=== PATIENT | male | born 1960 | race Caucasian/White ===

== ENCOUNTER 2020-09-05 18:18 | Inpatient (IN) | payer MEDICAID ==
[~2020-09-05] VITALS: Ht 165.1 cm; Wt 90.7 kg
[2020-09-05 19:57] LABS: CHLORIDE 100 mEq/L (98-107)
[2020-09-05 19:58] LABS: HEMATOCRIT. 39.1 % (42.0-52.0); HEMOGLOBIN. 14.3 g/dL (14.0-18.0); MEAN CORPUSCULAR HEMOGLOBIN 34.3 pg (28.0-32.0); MEAN PLATELET VOLUME 8.4 fl (7.4-10.4); PLATELET 231 x1000/uL (130-400); RED BLOOD CELL COUNT 4.16 mill/uL (4.7-6.1); RED CELL DISTRIBUTION WIDTH 13.5 % (11.6-14.6)
[2020-09-05 20:00] LABS: CLARITY URINE CLEAR (CLEAR); COLOR URINE YELLOW (YELLOW); KETONES URINE TRACE (NEGATIVE); LEUKOCYTE ESTERASE URINE NEGATIVE (NEGATIVE); NITRITE URINE NEGATIVE (NEGATIVE); OCCULT BLOOD URINE 2+ (NEGATIVE); PH URINE 5.5 (4.5-8.0); PROTEIN URINE NEGATIVE (NEGATIVE); SPECIFIC GRAVITY URINE 1.013 (1.005-1.030); UROBILINOGEN URINE 0.2 E.U./dL (0.2-1.0)
[2020-09-05 20:02] LABS: ETHANOL BLOOD 95 mg/dL
[2020-09-05 21:00] LABS: *AMPHETAMINES SCREEN URINE NEGATIVE (NEGATIVE); *BARBITURATES SCREEN URINE NEGATIVE (NEGATIVE); *BENZODIAZEPINES SCREEN URINE NEGATIVE (NEGATIVE); *COCAINE SCREEN URINE NEGATIVE (NEGATIVE); CANNABINOID URINE SCREEN NEGATIVE (NEGATIVE); OPIATES URINE SCREEN NEGATIVE (NEGATIVE); PHENCYCLIDINE URINE SCREEN NEGATIVE (NEGATIVE)
[2020-09-05 21:01] LABS: METHADONE URINE SCREEN NEGATIVE (NEGATIVE)
[2020-09-05 21:38] LABS: PLATELET ESTIMATE NORMAL
[2020-09-05] MEDS ORDERED: SODIUM CHLORIDE 0.9% 1,000 ML IV ONE (23:45)
[2020-09-05] MEDS ORDERED: ONDANSETRON HCL 4MG/2ML INJ IV ONE (23:45)
[2020-09-05] MEDS ORDERED: CYANOCOBALAMIN 1000MCG/ML VIAL IM ONE (23:45)
[2020-09-05] MEDS ORDERED: LORAZEPAM 0.5MG TABLET PO ONE (23:45)
[2020-09-06] MEDS ORDERED: POTASSIUM CHLORIDE 20MEQ TABLET SR PO ONE (00:45)
[2020-09-06] MEDS ORDERED: HYDROCODONE/ACETAMINOPHEN 5/325MG TABLET PO ONE (04:45)
[2020-09-06 10:00] VITALS: BP 148/72
[2020-09-06 10:47] VITALS: BP 148/72
[2020-09-06 12:00] VITALS: BP 154/91
[2020-09-06] MEDS ORDERED: DEXTROSE 50% WATER 50ML SYRINGE IV PRN (13:15)
[2020-09-06] MEDS: SODIUM CHLORIDE 0.45% 1,000 ML IV SCH (14:23)
[2020-09-06] MEDS: CHLORDIAZEPOXIDE 5 MG CAPSULE PO SCH ×2 (14:25→21:38)
[2020-09-06] MEDS: AMLODIPINE 5MG TABLET PO SCH (14:25)
[2020-09-06] MEDS: ISOSORBIDE MONONITRATE 30MG TABLET SR 24HR PO SCH (14:26)
[2020-09-06] MEDS: ASPIRIN 81MG TABLET PO SCH (14:27)
[2020-09-06] MEDS ORDERED: AMLO5TAB4 PO (15:14)
[2020-09-06] MEDS ORDERED: METO25TA6 MT (15:14)
[2020-09-06] MEDS ORDERED: ISOS10TA53 MT (15:14)
[2020-09-06] MEDS ORDERED: ASPI-1497 PO (15:18)
[2020-09-06 16:00] VITALS: BP 132/67
[2020-09-06] MEDS: INSULIN LISPRO 100 UNITS/ML SUBCUT SCH ×2 (17:40→21:00)
[2020-09-06] MEDS: BLOOD SUGAR DIAGNOSTIC STRIP TEST SCH ×2 (17:41→21:38)
[2020-09-06 20:00] VITALS: BP 138/86
[2020-09-06] MEDS ORDERED: METOPROLOL TARTRATE 25MG TABLET PO SCH (21:00)
[2020-09-06] MEDS: METOPROLOL TARTRATE 25MG TABLET PO SCH (21:37)
[2020-09-07] VITALS: BP 129/98
[2020-09-07] MEDS: SODIUM CHLORIDE 0.45% 1,000 ML IV SCH ×2 (01:03→13:45)
[2020-09-07 04:00] VITALS: BP 138/93
[2020-09-07] MEDS: CHLORDIAZEPOXIDE 5 MG CAPSULE PO SCH ×2 (05:48→14:00)
[2020-09-07] MEDS: BLOOD SUGAR DIAGNOSTIC STRIP TEST SCH ×2 (05:48→12:26)
[2020-09-07] MEDS: INSULIN LISPRO 100 UNITS/ML SUBCUT SCH ×2 (05:48→12:26)
[2020-09-07] MEDS ORDERED: METO25TA6 MT (07:02)
[2020-09-07] MEDS ORDERED: AMLO5TAB4 PO (07:02)
[2020-09-07 07:22] LABS: BASOPHILS % 0.5 % (0.0-2.0); HEMATOCRIT. 40.2 % (42.0-52.0); HEMOGLOBIN. 14.4 g/dL (14.0-18.0); MEAN CORPUSCULAR HEMOGLOBIN 34.1 pg (28.0-32.0); MEAN CORPUSCULAR VOLUME 94.9 fL (80.0-94.0); MEAN PLATELET VOLUME 8.2 fl (7.4-10.4); MONOCYTES % 8.8 % (2.0-8.0); NEUTROPHILS % 70.7 % (40.0-76.0); PLATELET 208 x1000/uL (130-400); RED BLOOD CELL COUNT 4.23 mill/uL (4.7-6.1); RED CELL DISTRIBUTION WIDTH 13.8 % (11.6-14.6)
[2020-09-07 07:42] LABS: CHLORIDE 106 mEq/L (98-107)
[2020-09-07 08:00] VITALS: BP 127/88
[2020-09-07] MEDS: ASPIRIN 81MG TABLET PO SCH (09:41)
[2020-09-07] MEDS: ISOSORBIDE MONONITRATE 30MG TABLET SR 24HR PO SCH (09:41)
[2020-09-07] MEDS: AMLODIPINE 5MG TABLET PO SCH (09:41)
[2020-09-07 09:42] LABS: T4 FREE 1.1 ng/dL (0.76-1.46)
[2020-09-07] MEDS: METOPROLOL TARTRATE 25MG TABLET PO SCH (09:42)
[2020-09-07 12:00] VITALS: BP 127/81
[2020-09-07 14:03] VITALS: BP 127/81
[2020-09-07 16:17] LABS: CREATINE KINASE 84 IU/L (39-308)
[2020-09-08 05:09] LABS: HAV IGM ANTIBODY Negative (Negative); HBSAG SCREEN Negative (Negative); HEPATITIS B CORE IGM AB Negative (Negative); HEPATITIS C AB <0.1 s/co ratio (0.0-0.9)
== END 2020-09-07 16:55 | disposition home or self-care (01) | DRG 243 ==
LOC: ER 20:35 → 8WST 09-06 01:18 → EDBEDREQTM 09-06 01:24 → EDBEDREQ 09-06 01:24 → ENRESERV 09-06 09:03
PROVIDERS: ADMIT Family Medicine; ATTEND Family Medicine
DX: K21.9 Gastro-esophageal reflux disease without esophagitis (principal); E87.2 Acidosis; E11.9 Type 2 diabetes mellitus without complications; F32.9 Major depressive disorder, single episode, unspecified; I10 Essential (primary) hypertension; F10.129 Alcohol abuse with intoxication, unspecified; Y90.9 Presence of alcohol in blood, level not specified; F10.139 Alcohol abuse with withdrawal, unspecified; Z79.82 Long term (current) use of aspirin; Z79.899 Other long term (current) drug therapy
CPT/HCPCS: 36415; 71045; 80053; 80061; 80074; 80076; 80305; 80320; 81003; 82248; 82550; 82553; 82962; 83036; 83605; 83880; 84439; 84443; 84484; 85025; 85379; 86705; 86709; 86803; 87340; 93005; 93306; 99285; J2405; J3420; J7030; G0480

== ENCOUNTER 2023-08-03 00:38 | Emergency (ER) | payer MEDICAID ==
[~2023-08-03] VITALS: Ht 172.7 cm; Wt 100.0 kg
[~2023-08-03 00:38] MED LIST: AMLO5TAB4 PO; ASPI-1497 PO; METO25TA6 MT
[2023-08-03 00:48] VITALS: BP 108/73; PULSE 93; RESP 16; TEMP 98.3; O2SAT 99
[2023-08-03 04:04] LABS: CARBON DIOXIDE 27 mEq/L (21-32); CHLORIDE 98 mEq/L (98-107); POTASSIUM 3.9 mEq/L (3.5-5.1); SODIUM 133 mEq/L (136-145)
[2023-08-03 04:09] LABS: GLUCOSE 100 mg/dL (70-105)
[2023-08-03 04:10] LABS: TROPONIN I HIGH SENSITIVITY 5 ng/L (3.0-53); UREA NITROGEN BLOOD 8 mg/dL (9-23)
[2023-08-03 04:11] LABS: ALANINE AMINOTRANSFERASE 23 IU/L (10-49); ALBUMIN 5.2 g/dL (3.2-4.8); ASPARTATE AMINOTRANSFERASE 26 IU/L (<34)
[2023-08-03 04:12] LABS: BILIRUBIN TOTAL 0.7 mg/dL (0.1-1.0); PROTEIN TOTAL 8.2 g/dL (6.0-8.3)
[2023-08-03 05:07] LABS: BASOPHILS % 0.2 % (0.0-2.0); DIFFERENTIAL COMMENT 0; EOSINOPHILS % 0.4 % (0.0-5.0); HEMATOCRIT. 44.8 % (42.0-52.0); HEMOGLOBIN. 15.9 g/dL (14.0-18.0); LYMPHOCYTES % 13.7 % (20.0-50.0); MEAN CORPUSCULAR HEMOGLOBIN 32.4 pg (28.0-32.0); MEAN CORPUSCULAR HGB CONC 35.5 g/dL (31.0-37.0); MEAN CORPUSCULAR VOLUME 91.4 fL (80.0-94.0); MEAN PLATELET VOLUME 8.7 fl (7.4-10.4); MONOCYTES % 7.1 % (2.0-8.0); NEUTROPHILS % 78.6 % (40.0-76.0); RED CELL DISTRIBUTION WIDTH 13.4 % (11.6-14.6)
[2023-08-03 05:09] LABS: RED BLOOD CELL COUNT 4.82 mill/uL (4.7-6.1); WHITE BLOOD COUNT 10.8 x1000/uL (4.5-11.0)
[2023-08-03 05:10] LABS: PLATELET 298 x1000/uL (130-400)
[2023-08-03] MEDS ORDERED: ACET-2708 MT (05:58)
[2023-08-03] MEDS ORDERED: TRAM50TA3 MT (05:58)
== END 2023-08-03 06:06 | disposition home or self-care (01) ==
LOC: ER 00:38
DX: R07.89 Other chest pain (principal); S80.01XA Contusion of right knee, initial encounter; I10 Essential (primary) hypertension; E11.9 Type 2 diabetes mellitus without complications; Z98.890 Other specified postprocedural states; X58.XXXA Exposure to other specified factors, initial encounter; Y93.89 Activity, other specified; Y92.89 Other specified places as the place of occurrence of the external cause; Y99.8 Other external cause status
CPT/HCPCS: 36415; 71045; 72128; 80053; 84484; 85025; 93005; 99285

== ENCOUNTER 2023-08-25 13:45 | Emergency (ER) | payer MEDICAID ==
[~2023-08-25] VITALS: Ht 170.2 cm; Wt 91.0 kg
[~2023-08-25 13:45] MED LIST changes: +ACET-2708 MT; +TRAM50TA3 MT
[2023-08-25 13:50] VITALS: BP 134/80; PULSE 101; RESP 16; TEMP 97.7; O2SAT 100
[2023-08-25] MEDS ORDERED: ASPIRIN 81MG TABLET PO ONE (14:30)
[2023-08-25 14:55] LABS: BASOPHILS % 0.6 % (0.0-2.0); EOSINOPHILS % 0.8 % (0.0-5.0); HEMATOCRIT. 42.9 % (42.0-52.0); HEMOGLOBIN. 15.1 g/dL (14.0-18.0); LYMPHOCYTES % 12.9 % (20.0-50.0); MEAN CORPUSCULAR HEMOGLOBIN 32.3 pg (28.0-32.0); MEAN CORPUSCULAR HGB CONC 35.2 g/dL (31.0-37.0); MEAN CORPUSCULAR VOLUME 91.7 fL (80.0-94.0); MEAN PLATELET VOLUME 7.9 fl (7.4-10.4); MONOCYTES % 6.1 % (2.0-8.0); NEUTROPHILS % 79.6 % (40.0-76.0); PLATELET 271 x1000/uL (130-400); RED BLOOD CELL COUNT 4.67 mill/uL (4.7-6.1); RED CELL DISTRIBUTION WIDTH 13.7 % (11.6-14.6); WHITE BLOOD COUNT 9.2 x1000/uL (4.5-11.0)
[2023-08-25 15:01] LABS: CHLORIDE 99 mEq/L (98-107); POTASSIUM 3.1 mEq/L (3.5-5.1); SODIUM 131 mEq/L (136-145)
[2023-08-25 15:02] LABS: CARBON DIOXIDE 23 mEq/L (21-32)
[2023-08-25 15:03] LABS: CALCIUM 9.8 mg/dL (8.7-10.4)
[2023-08-25 15:05] LABS: PARTIAL THROMBOPLASTIN TIME 28.2 sec (23.4-31.0); PROTHROMBIN TIME 11.2 sec (9.6-11.0)
[2023-08-25 15:07] LABS: GLUCOSE 119 mg/dL (70-105)
[2023-08-25 15:08] LABS: UREA NITROGEN BLOOD 9 mg/dL (9-23)
[2023-08-25 15:09] LABS: ALANINE AMINOTRANSFERASE 23 IU/L (10-49); ALBUMIN 4.4 g/dL (3.2-4.8); ASPARTATE AMINOTRANSFERASE 25 IU/L (<34)
[2023-08-25 15:10] LABS: BILIRUBIN DIRECT 0.3 mg/dL (<=3.0); BILIRUBIN TOTAL 0.8 mg/dL (0.1-1.0); PROTEIN TOTAL 7.5 g/dL (6.0-8.3)
[2023-08-25 15:16] LABS: TROPONIN I HIGH SENSITIVITY < 4 ng/L (3.0-53)
[2023-08-25 15:18] LABS: ETHANOL BLOOD < 10 mg/dL (<10)
== END 2023-08-25 15:54 | disposition left against medical advice (07) ==
LOC: ER 13:56 → CANBEDREQ 22:45
DX: R07.89 Other chest pain (principal); F15.90 Other stimulant use, unspecified, uncomplicated; I10 Essential (primary) hypertension; E11.9 Type 2 diabetes mellitus without complications; Z98.890 Other specified postprocedural states
CPT/HCPCS: 36415; 80048; 80076; 80320; 83880; 84484; 85025; 93005; 99283; G0480

== ENCOUNTER 2023-10-16 21:02 | Emergency (ER) | payer MEDICAID ==
[~2023-10-16] VITALS: Ht 175.3 cm; Wt 82.0 kg
[2023-10-16 21:15] VITALS: O2SAT 100
[2023-10-16] MEDS: ACETAMINOPHEN 325MG TABLET PO STA (23:16)
[2023-10-16 23:41] LABS: BASOPHILS % 0.9 % (0.0-2.0); EOSINOPHILS % 2.5 % (0.0-5.0); HEMATOCRIT. 40.6 % (42.0-52.0); HEMOGLOBIN. 14.8 g/dL (14.0-18.0); LYMPHOCYTES % 19.4 % (20.0-50.0); MEAN CORPUSCULAR HEMOGLOBIN 33.7 pg (28.0-32.0); MEAN CORPUSCULAR HGB CONC 36.4 g/dL (31.0-37.0); MEAN CORPUSCULAR VOLUME 92.7 fL (80.0-94.0); MEAN PLATELET VOLUME 7.6 fl (7.4-10.4); MONOCYTES % 6.1 % (2.0-8.0); NEUTROPHILS % 71.1 % (40.0-76.0); PLATELET 253 x1000/uL (130-400); RED BLOOD CELL COUNT 4.39 mill/uL (4.7-6.1); RED CELL DISTRIBUTION WIDTH 12.9 % (11.6-14.6); WHITE BLOOD COUNT 10.2 x1000/uL (4.5-11.0)
[2023-10-16 23:46] LABS: CHLORIDE 102 mEq/L (98-107); POTASSIUM 4.3 mEq/L (3.5-5.1); SODIUM 132 mEq/L (136-145)
[2023-10-16 23:47] LABS: CALCIUM 9.5 mg/dL (8.7-10.4); CARBON DIOXIDE 27 mEq/L (21-32); DIFFERENTIAL COMMENT 1
[2023-10-16 23:52] LABS: CREATININE 0.8 mg/dL (0.6-1.3); GLUCOSE 91 mg/dL (70-105); UREA NITROGEN BLOOD 11 mg/dL (9-23)
[2023-10-16 23:54] LABS: ALANINE AMINOTRANSFERASE 18 IU/L (10-49); ALBUMIN 4.6 g/dL (3.2-4.8); ASPARTATE AMINOTRANSFERASE 18 IU/L (<34); BILIRUBIN TOTAL 0.4 mg/dL (0.1-1.0); PROTEIN TOTAL 7.3 g/dL (6.0-8.3)
[2023-10-17] LABS: TROPONIN I HIGH SENSITIVITY < 4 ng/L (3.0-53)
[2023-10-17] MEDS: ASPIRIN 81MG EC TABLET PO ONE (01:17)
[2023-10-17 08:16] VITALS: BP 140/85; PULSE 55; RESP 18; TEMP 37.05852; O2SAT 100
== END 2023-10-17 08:54 | disposition left against medical advice (07) ==
LOC: ER 21:02 → EDBEDREQ 10-17 02:13 → ER 10-17 08:54
DX: R07.89 Other chest pain (principal); R51.9 Headache, unspecified; F32.9 Major depressive disorder, single episode, unspecified; E11.9 Type 2 diabetes mellitus without complications; I10 Essential (primary) hypertension; R00.0 Tachycardia, unspecified; I49.9 Cardiac arrhythmia, unspecified; F15.10 Other stimulant abuse, uncomplicated; Z87.440 Personal history of urinary (tract) infections
CPT/HCPCS: 36415; 71045; 80053; 83880; 84484; 85025; 93005; 99285

== ENCOUNTER 2024-02-01 15:25 | Emergency (ER) | payer MEDICAID ==
[~2024-02-01] VITALS: Ht 170.2 cm; Wt 82.0 kg
[~2024-02-01 15:25] MED LIST changes: -AMLO5TAB4 PO; +AMLO5TAB5 PO
[2024-02-01 15:31] VITALS: O2SAT 97
[2024-02-01 17:22] LABS: BASOPHILS % 0.4 % (0.0-2.0); EOSINOPHILS % 0.2 % (0.0-5.0); HEMATOCRIT. 45.5 % (42.0-52.0); HEMOGLOBIN. 16.2 g/dL (14.0-18.0); LYMPHOCYTES % 11.5 % (20.0-50.0); MEAN CORPUSCULAR HEMOGLOBIN 32.3 pg (28.0-32.0); MEAN CORPUSCULAR HGB CONC 35.5 g/dL (31.0-37.0); MEAN CORPUSCULAR VOLUME 91.1 fL (80.0-94.0); MEAN PLATELET VOLUME 7.9 fl (7.4-10.4); MONOCYTES % 6.6 % (2.0-8.0); NEUTROPHILS % 81.3 % (40.0-76.0); PLATELET 321 x1000/uL (130-400); RED CELL DISTRIBUTION WIDTH 13.3 % (11.6-14.6); WHITE BLOOD COUNT 13.4 x1000/uL (4.5-11.0)
[2024-02-01] MEDS: ALPRAZOLAM 0.5 MG TABLET PO ONE (17:26)
[2024-02-01 17:27] LABS: CHLORIDE 96 mEq/L (98-107); POTASSIUM 3.6 mEq/L (3.5-5.1); SODIUM 128 mEq/L (136-145)
[2024-02-01 17:28] LABS: CARBON DIOXIDE 23 mEq/L (21-32)
[2024-02-01 17:29] LABS: CALCIUM 10.2 mg/dL (8.7-10.4)
[2024-02-01 17:33] LABS: CREATININE 1.1 mg/dL (0.6-1.3); GLUCOSE 141 mg/dL (70-105); UREA NITROGEN BLOOD 13 mg/dL (9-23)
[2024-02-01 17:48] LABS: TROPONIN I HIGH SENSITIVITY < 4 ng/L (3.0-53)
[2024-02-01] MEDS: SODIUM CHLORIDE 0.9% 1,000 ML IV ONE (18:03)
[2024-02-01 19:40] LABS: TROPONIN I HIGH SENSITIVITY < 4 ng/L (3.0-53)
[2024-02-01 19:56] LABS: *AMPHETAMINES SCREEN URINE PRESUMPTIVE POSITIVE (NEGATIVE); *BARBITURATES SCREEN URINE NEGATIVE (NEGATIVE); *BENZODIAZEPINES SCREEN URINE NEGATIVE (NEGATIVE); *COCAINE SCREEN URINE NEGATIVE (NEGATIVE); CANNABINOID URINE SCREEN NEGATIVE (NEGATIVE); METHADONE URINE SCREEN NEGATIVE (NEGATIVE); OPIATES URINE SCREEN NEGATIVE (NEGATIVE); PHENCYCLIDINE URINE SCREEN NEGATIVE (NEGATIVE)
[2024-02-01 19:57] LABS: ECSTASY MDMA SCREEN URINE NEGATIVE (NEGATIVE)
[2024-02-01 21:25] VITALS: BP 122/71; PULSE 92; RESP 18; TEMP 36.44736; O2SAT 100
== END 2024-02-01 21:30 | disposition home or self-care (01) ==
LOC: ER 15:25
DX: F15.90 Other stimulant use, unspecified, uncomplicated (principal); R07.9 Chest pain, unspecified; I10 Essential (primary) hypertension; E11.9 Type 2 diabetes mellitus without complications; E87.1 Hypo-osmolality and hyponatremia; F32.A Depression, unspecified; Z87.440 Personal history of urinary (tract) infections; Z79.899 Other long term (current) drug therapy
CPT/HCPCS: 36415; 71045; 80048; 80305; 83880; 84484; 85025; 93005; 96360; 96361; 99285

== ENCOUNTER 2024-08-08 14:21 | Emergency (ER) | payer MEDICAID ==
[~2024-08-08] VITALS: Ht 177.8 cm; Wt 74.0 kg
[2024-08-08 14:22] VITALS: O2SAT 98
[2024-08-08 15:12] LABS: BASOPHILS % 0.8 % (0.0-2.0); EOSINOPHILS % 3.5 % (0.0-5.0); HEMOGLOBIN. 14.6 g/dL (14.0-18.0); LYMPHOCYTES % 17.2 % (20.0-50.0); MEAN CORPUSCULAR HEMOGLOBIN 32.8 pg (28.0-32.0); MEAN CORPUSCULAR HGB CONC 35.7 g/dL (31.0-37.0); MEAN CORPUSCULAR VOLUME 91.9 fL (80.0-94.0); MONOCYTES % 9.2 % (2.0-8.0); NEUTROPHILS % 69.3 % (40.0-76.0); PLATELET 252 x1000/uL (130-400); RED BLOOD CELL COUNT 4.46 mill/uL (4.7-6.1); WHITE BLOOD COUNT 8.8 x1000/uL (4.5-11.0)
[2024-08-08 15:16] LABS: CHLORIDE 100 mEq/L (98-107); POTASSIUM 3.9 mEq/L (3.5-5.1); SODIUM 135 mEq/L (136-145)
[2024-08-08 15:17] LABS: CARBON DIOXIDE 28 mEq/L (21-32)
[2024-08-08 15:18] LABS: CALCIUM 9.5 mg/dL (8.7-10.4)
[2024-08-08 15:22] LABS: D-DIMER < 0.19 mg/L FEU (<0.50); PROTHROMBIN TIME 10.9 sec (9.6-11.0)
[2024-08-08 15:23] LABS: GLUCOSE 120 mg/dL (70-105); UREA NITROGEN BLOOD 22 mg/dL (9-23)
[2024-08-08 15:24] LABS: ALANINE AMINOTRANSFERASE 13 IU/L (10-49); ALBUMIN 4.4 g/dL (3.2-4.8); ASPARTATE AMINOTRANSFERASE 15 IU/L (<34)
[2024-08-08 15:25] LABS: BILIRUBIN DIRECT 0.1 mg/dL (<=3.0); BILIRUBIN TOTAL 0.5 mg/dL (0.1-1.0)
[2024-08-08 15:30] LABS: TROPONIN I HIGH SENSITIVITY < 4 ng/L (3.0-53)
[2024-08-08 16:20] VITALS: TEMP 36.7
[2024-08-08 17:09] LABS: CLARITY URINE CLEAR (CLEAR); COLOR URINE YELLOW (YELLOW); GLUCOSE URINE NEGATIVE (NEGATIVE); KETONES URINE NEGATIVE (NEGATIVE); LEUKOCYTE ESTERASE URINE NEGATIVE (NEGATIVE); NITRITE URINE NEGATIVE (NEGATIVE); OCCULT BLOOD URINE NEGATIVE (NEGATIVE); PH URINE 6.5 (4.5-8.0); PROTEIN URINE NEGATIVE (NEGATIVE); SPECIFIC GRAVITY URINE 1.005 (1.005-1.030); UROBILINOGEN URINE 0.2 E.U./dL (0.2-1.0)
[2024-08-08] MEDS: SODIUM CHLORIDE 0.9% 1,000 ML IV ONE (17:45)
[2024-08-08 20:00] VITALS: BP 117/77; PULSE 62; RESP 15; O2SAT 100
== END 2024-08-08 20:25 | disposition left against medical advice (07) ==
LOC: ER 14:21 → EDBEDREQ 20:09 → EDBEDREQTM 20:09 → CANBEDREQ 20:21 → ER 20:25
DX: R00.1 Bradycardia, unspecified (principal); F15.10 Other stimulant abuse, uncomplicated; E11.9 Type 2 diabetes mellitus without complications; I10 Essential (primary) hypertension; I51.9 Heart disease, unspecified; F32.A Depression, unspecified; Z98.890 Other specified postprocedural states; Z79.899 Other long term (current) drug therapy
CPT/HCPCS: 99291; 96360; 96361; 80076; 80048; 81003; 83880; 83690; 85025; 85379; 85610; 84484; 36415; 71045; 93005; J7030; A4565